=== PATIENT | male | born 1960 | race Caucasian/White ===

== ENCOUNTER 2018-11-09 01:21 | Day surgery (SDC) | payer BC ==
[~2018-11-09] VITALS: Ht 182.9 cm; Wt 88.0 kg
[~2018-11-09 01:21] MED LIST: MULT-1335 PO; MULT1CAP59 PO
[2018-11-09 06:26] VITALS: BP 135/87
[2018-11-09] MEDS ORDERED: NORMOSOL R SOLN(*) 1000 ML BAG 1,000 ML IV PRN (06:30)
[2018-11-09] MEDS ORDERED: LIDOCAINE/SOD BICARB 8.4% SYR ID ONE (06:30)
[2018-11-09] MEDS ORDERED: PROPOFOL EMUL(*) 10MG/ML 20 ML 40 ML ONE (07:12)
[2018-11-09] MEDS ORDERED: LIDOCAINE MPF 1% 5 ML VIAL ONE (07:12)
[2018-11-09 07:44] VITALS: BP 97/65
--- NOTE | 2018-11-09 07:57 | Short(Outpt) Discharge Summary ---
Discharge Summary Reason for Hosp/Final Diag: (1) Colon cancer screening Status: Chronic Hospital Course & Plan: Colonoscopy with polypectomy x1 completed without problems. Departure Discharge to: Home, Self Care Discharge Instructions Home Meds Reported Medications Multivitamin (MULTIVITAMINS) 1 Each Capsule, 1 EACH PO, CAPSULE 09/05/18 Diet: Regular Activity: As Tolerated Special Instructions: Your colonoscopy was completed without problems and your prep was excellent (Good Job!!). I removed a single small polyp from your rectum and it was sent to pathology. My office will call you in the next week or two to let you know what the polyp is and when your next colonoscopy should be (either 5 or 10 years) depending on pathology results. DO BEYRS MD Nov 09, 2018 07:57
[2018-11-09 08:13] VITALS: BP 127/86
[2018-11-09 08:16] VITALS: BP 119/86
== END 2018-11-09 08:30 | disposition home or self-care (01) ==
LOC: OR 01:21
PROVIDERS: ATTEND Surgery
DX: Z12.11 Encounter for screening for malignant neoplasm of colon (principal); D12.8 Benign neoplasm of rectum
CPT/HCPCS: 00811; 45385; 88305; J2001; J2704